=== PATIENT | female | born 2005 | race Caucasian/White ===

== ENCOUNTER 2024-04-07 16:40 | Emergency (ER) | payer SELFPAY ==
[2024-04-07 16:45] VITALS: BP 128/78; PULSE 90; TEMP 36.4; O2SAT 98; BMI 23.4
[2024-04-07 17:12] LABS: HCG Qualitative Urine* NEGATIVE (NEGATIVE); Internal Control Within Normal Limits
[2024-04-07 17:22] LABS: Influenza Virus A Antigen Negative; Influenza Virus B Antigen Negative; Internal Control Within Normal Limits; Respiratory Syncytial Virus Not Detected (NOT DETECTE); SARS-CoV-2 Ag NEGATIVE (NEGATIVE); Strep A Antigen Screen Negative
[2024-04-07 17:30] VITALS: O2SAT 97
--- NOTE | 2024-04-07 17:55 | XR_ITS ---
[facility] [place] [id number] Patient Name: JOSÉ MIGUEL MCCARTNEY MRN: [id number] date: 2005 Sex: F Assigned Patient Location: ER Current Patient Location: ER Accession/Order Number: [id number] Exam Date: 04/07/2024 18:25 Report Date: 04/07/2024 18:26 At the request of: KAROL GOMEZ Procedure: XR chest 2V XR chest 2V 04/07/2024 6:11 PM SIGNS AND SYMPTOMS: ^cough, shortness of breath PROTOCOL: Frontal and lateral radiographs of the chest COMPARISON: None FINDINGS: The trachea is midline. The heart and mediastinal structures are within normal limits. The lung parenchyma is clear. The bony thorax is intact. XR/XR chest 2V IMPRESSION: No acute cardiopulmonary pathology. Impression dictated by: Som Kwong M.D.04/07/2024 6:26 PM Dictation Location: [place] [address] Electronically authenticated by: [id number] Y Date: 04/07/2024 18:26
--- NOTE | 2024-04-07 18:04 | PC.NURSE ---
pt ambulatory to Radiology at this time with [employer] Manager for CXR.
[2024-04-07 18:15] VITALS: PULSE 70; O2SAT 96
[2024-04-07] MEDS: IPRATROPIUM/ALBUTEROL SULFATE 3 ML AMPUL.NEB IH (18:15)
[2024-04-07] MEDS: IBUPROFEN 400 MG TABLET PO (18:19)
[2024-04-07] MEDS: PSEUDOEPHEDRINE HCL 30 MG TABLET 60 MG PO (18:19)
[2024-04-07] MEDS: OXYMETAZOLINE HCL 0.05% NASAL SPRAY 2 SPRAY NS (18:19)
[2024-04-07] MEDS: PREDNISONE 20 MG TABLET 40 MG PO (18:19)
--- NOTE | 2024-04-07 18:53 | ED.URI1 ---
HPI - URI/Sore Throat General Chief Complaint: Upper Respiratory Infection Stated Complaint: CONGESTION, SORE THROAT Time Seen by Provider: 04/07/24 16:57 Source: patient and family (mother) History of Present Illness HPI Narrative: 19-year-old female presents to the emergency department with mother with complaint of not feeling well over the past 2 days. Complains of persistent runny nose, postnasal drainage that is keeping her awake at night. Patient has had associated cough with dark sputum. Feeling a little short of breath as well. + Sore throat. Denies any sinus pain, known fevers, chills Quality:?As above Severity:?Moderate Timing:?As above, constant Context: Normal setting and activity? Modifying factors:?None Associated symptoms: As above Related Data Previous Rx's ?Medication ?Instructions ?Recorded albuterol sulfate 1.25 mg/3 mL 1.25 mg (3 mL) inhalation Q6H PRN 04/07/24 solution for nebulization shortness of breath or wheezing #75 mL albuterol sulfate 90 mcg/actuation 2 inh inhalation Q6H PRN shortness 04/07/24 aerosol inhaler of breath or wheezing #8.5 grams doxycycline hyclate 100 mg capsule 100 mg PO BID 10 days #20 caps 04/07/24 loratadine 5 mg-pseudoephedrine ER 1 tab PO BID PRN cold symptoms #14 04/07/24 120 mg tablet,extended tabs release,12hr (Claritin-D 12 Hour) prednisone 20 mg tablet 20 mg PO DAILY #7 tabs 04/07/24 Allergies Allergy/AdvReac Type Severity Reaction Status Date / Time No Known Drug Allergies Allergy Verified 04/07/24 16:45 Review of Systems ROS Narrative Constitutional: Denies fever, chills, fatigue HENT: + Congestion, rhinorrhea, postnasal drip, sore throat. Denies ear pain diff swallowing, voice change Eyes: Denies discharge, eye redness Respiratory: + cough, shortness of breath Cardiovascular: Denies chest pain, palpitations PFSH PFSH Social History Little interest or pleasure in doing things: not at all Feeling down, depressed, or hopeless: not at all Exam Narrative Exam Narrative: Vital signs noted Nurses notes reviewed CONST:? Nontoxic, well appearing, well nourished, in no distress.? HENT: normocephalic, atraumatic.? Normal hearing.? Normal appearing ext ears, canals.? Both TMs are somewhat bulging, though clear, consistent with serous otitis media. She sounds congested. No nasal discharge.? Moist mucous membranes, no increased posterior oropharyngeal edema, exudate.? + streaking to the posterior oropharyngeal region consistent with postnasal drip. No trismus, maintaining own secretions. EYES: No injection, discharge NECK: supple, no lymphadenopathy CV: normal rate, regular rhythm, no murmur RESP: normal effort, speaking in complete sentences. Lung sounds clear and equal bilat.? No rales, rhonchi. + exp wheezing throughout NEURO: A&Ox3, steady gait, normal station SKIN: intact, warm, dry, no pallor PSYCHIATRIC: normal mood, affect Constitutional Vital Signs, click to edit/add: Last Vital Signs Temp 97.5 F L 04/07/24 16:45 Pulse 70 04/07/24 18:15 Resp 18 04/07/24 18:15 BP 128/78 04/07/24 16:45 Pulse Ox 96 04/07/24 18:15 O2 Del Method Room Air 04/07/24 18:15 Course Reevaluation(s) Reevaluation #1: On reevaluation, patient reports feeling much better. She is smiling, appears comfortable. On auscultation, wheezing improved. Discussed with patient and mother results, plan, and disposition. They are agreeable with plan Time: 18:58 Vital Signs Vital signs: Vital Signs Temperature 97.5 F L 04/07/24 16:45 Pulse Rate 90 04/07/24 16:45 Respiratory Rate 20 04/07/24 16:45 Blood Pressure 128/78 04/07/24 16:45 Pulse Oximetry 98 04/07/24 16:45 Oxygen Delivery Method Room Air 04/07/24 16:45 Temperature 97.5 F L 04/07/24 16:45 Pulse Rate 70 04/07/24 18:15 Respiratory Rate 18 04/07/24 18:15 Blood Pressure 128/78 04/07/24 16:45 Pulse Oximetry 96 04/07/24 18:15 Oxygen Delivery Method Room Air 04/07/24 18:15 MDM - URI/Sore Throat MDM Narrative Medical decision making narrative: This is a pleasant 19-year-old female who presents to the emergency department for evaluation of nasal congestion, cough On arrival, afebrile, vital signs are stable Exam, nontoxic, well-appearing patient in no distress. She sounds congested. Some streaking of the posterior oropharynx consistent with postnasal drip present. She has some bulging of both TMs, but clear, consistent with serous otitis. Heart regular rate and rhythm. Wheezing in all lung larios on expiration present. COVID, influenza, RSV screens were all negative. Strep screen was negative Chest x-ray reveals no acute or concerning findings. Patient was given duo nebulizer, prednisone, Afrin, Motrin with overall improvement of her symptoms. Favor upper respiratory infection, bronchitis Pneumonia less likely based on imaging COVID, influenza, RSV less likely based on testing. History and Record Review Discussion with independent historian: Mother Management Independent interpretation: Chest x-ray: No infiltrate, edema, or other acute abnormality noted Re-Evaluation See ED course Disposition ? The patient was discharged. Prescriptions sent to pharmacy: Doxycycline, prednisone, albuterol, Claritin-D. She was sent home with Afrin. Plan: Patient will be discharged to home.? Condition at time of disposition: stable, improved.? Advised to follow up with primary provider. Advised to return for any worsening and/or development of new, concerning signs or symptoms PLEASE NOTE: Portions of the medical record may have been produced using electronic sas developer and may contain errors with respect to translation of words which may not have been identified prior to finalization of the chart. Medical Records Attestation: I reviewed the patient's medical records. Lab Data Attestation: I reviewed the patient's lab results. Labs: Lab Results 04/07/24 Range/Units 17:00 Urine HCG, Qual Negative (NEGATIVE) Influenza Type A Ag Negative Influenza Type B Ag Negative RSV Antigen Not detected (NOT DETECTE) SARS-CoV-2 Ag (CV2AG) Negative (NEGATIVE) Streptococcus Screen Negative Imaging Data Chest x-ray: Radiologist's impression: ITS Impressions Chest X-Ray 04/07/24 17:55 IMPRESSION: No acute cardiopulmonary pathology. Impression dictated by: Som Kwong M.D.04/07/2024 6:26 PM Dictation Location[id number] Electronically authenticated by: [id number] Y Date: 04/07/2024 18:26 Discharge Plan Discharge Stand Alone Forms: Work/School Release Chief Complaint: Upper Respiratory Infection Clinical Impression: Bronchitis Upper respiratory infection Qualifiers: URI type: unspecified URI Qualified Code(s): J06.9 - Acute upper respiratory infection, unspecified Sinusitis Qualifiers: Sinusitis location: pansinusitis Chronicity: acute Recurrence: non-recurrent Qualified Code(s): J01.40 - Acute pansinusitis, unspecified Patient Disposition: Home, Self-Care Time of Disposition Decision: 18:59 Condition: Good Mode of Transportation: Private Vehicle Prescriptions / Home Meds: New doxycycline hyclate 100 mg capsule 100 mg PO BID 10 Days Qty: 20 0RF albuterol sulfate 1.25 mg/3 mL solution for nebulization 1.25 mg inhalation Q6H PRN (Reason: shortness of breath or wheezing) Qty: 75 0RF albuterol sulfate 90 mcg/actuation HFA aerosol inhaler 2 inh inhalation Q6H PRN (Reason: shortness of breath or wheezing) Qty: 8.5 0RF Claritin-D 12 Hour 5-120 mg tablet extended release 12 hr 1 tab PO BID PRN (Reason: cold symptoms) Qty: 14 0RF prednisone 20 mg tablet 20 mg PO DAILY Qty: 7 0RF Print Language: Latvian Instructions: Sinusitis (ED), Upper Respiratory Infection (ED), Acute Bronchitis (ED) Referrals: Conor Daniel MD [Physician] - 1 week
[2024-04-07 19:26] VITALS: BP 98/55; PULSE 77; TEMP 36.8; O2SAT 100
--- NOTE | 2024-04-07 19:29 | PC.NURSE ---
i gave this patient verbal and written discharge orders along with 4 e-scripts and this patient voices yes to understanding these. at time of discharge this patient voices no concerns and shows no signs of distress
== END 2024-04-07 19:31 | disposition home or self-care (01) ==
PROVIDERS: Physician Assistant; Emergency Provider Emergency Medicine
DX: J06.9 Acute upper respiratory infection, unspecified (principal); J40 Bronchitis, not specified as acute or chronic; J01.40 Acute pansinusitis, unspecified
CPT/HCPCS: 71046; 84703; 87070; 87420; 87804; 87811; 87880; 94640; 99285; J7512

== ENCOUNTER 2024-05-09 19:03 | Emergency (ER) | payer SELFPAY ==
[2024-05-09 19:11] VITALS: BP 123/63; PULSE 87; TEMP 36.9; O2SAT 100; BMI 23.1
--- OUTSIDE RECORDS SUMMARY | 2024-05-09 19:16 | XMS_ITS | CCD ---
Author Organization [facility] Care Team Providers Care Associate Chemist Name Role Phone DO Trae Echols Primary Care Provider DO Valeriano Rasheed Emergency Provider Trae ECHOLS Attending Unavail able Trae ECHOLS Attending Unavail able Trae ECHOLS Attending Unavail able Tammy RODRIGUEZ Attending Unavailable Trae Echols Primary Care Unavailable Radha Lyman Attending Unavailable Radha Lyman Admitting Unavailable Travis Soler Unavailable Medications Current Medications Medication Drug Class(es) Dates Sig (Normalized) Sig (Original) dicyclomine hydrochloride 10 mg oral capsule (3 sources) Anticholinergic Start: 10-11-2019 End: 11-16-2020 take 10 mg by mouth three times daily Dicyclomine Active 10 MG PO Three times daily November 16, 2020 12:15am Dicyclomine HCl 20 MG as directed prn stomach pain and diarrhea Active escitalopram 5 mg oral tablet (2 sources) Serotonin Reuptake Inhibitor Start: 10-01-2021 take 2.5 mg by mouth once daily Escitalopram Oxalate Active 2.5 MG PO Daily October 01, 2021 12:00am take 1 tablet by gisele th every twenty-four hours Lexapro 5 MG 1 tablet Orally Once a day for 30 days Active Completed/Discontinued Medications Medication Drug Class(es) Dates Sig (Normalized) Sig (Original) ondansetron 4 mg oral tablet (1 source) Serotonin-3 Receptor Antagonist Start: 10-11-2019 End: 10-01-2021 Ondansetron Hcl (Zofran) 4 mg tablet Discontinued 4 MG PO every 6 to 8 hours October 11, 2019 12:00am October 01, 2021 3:20pm pantoprazole 40 mg delayed release oral tablet (2 sources) Proton Pump Inhibitor Start: 10-11-2019 End: 10-01-2021 take 1 tablet by mouth once daily Pantoprazole (Protonix) 40 mg tablet,delayed release (DR/EC) Discontinued 40 MG PO Daily November 16, 2020 12:15am October 01, 2021 3:20pm promethazine hydrochloride 25 mg rectal suppository (3 sources) Phenothiazine Start: 11-16-2020 End: 10-01-2021 Promethazine Discontinued 25 MG CO Q6H November 16, 2020 12:00am October 01, 2021 3:20pm Start: 06-14-2020 End: 10-01-2021 take 25 mg by mouth every six hours Promethazine Discontinued 25 MG PO Q6H November 16, 2020 12:00am October 01, 2021 3:20pm sucralfate 1000 mg oral tablet (1 source) Aluminum Complex Start: 10-11-2019 End: 10-01-2021 take 1 tablet by mouth every six hours Sucralfate (Carafate) 1 gram tablet Discontinued 1 GM PO Q6H 56 October 11, 2019 12:00am October 01, 2021 3:20pm Problems Problem Classification Problem Date Documented Da te Episodic/Chronic Abdominal pain (2 sources) Abdominal pain; Translations: [Unspecified abdominal pain] 10-10-2019 Episodic Mood disorders (2 sources) Recurrent major depressive episodes, moderate ; Translations: [Major depressive disorder, recurrent, moderate] Chronic Nausea and vomiting (2 sources) Nausea and vomiting; Translations: [Nausea with vomiting, unspecified] 11-16-2020 Episodic Substance-related disorders (1 source) Cannabis abuse; Translations: [Cannabis abuse, uncomplicated] 06-14-2020 Chronic Unclassified (1 source) Cough, unspecified; Translations: [Cough, unspecified] Onset: 02-16-2023 Results Test Name Value Interpretation Reference Range Facility COVID-19 / Flu A/B / RSV PCR on 02-16-2023 SARS-CoV-2 (COVID-19) RNA GIACOMO+probe Ql (Unsp spec) COVID-19 Cepheid Result Negative for SARS-CoV-2 RNA by RT-PCR Flu A Cepheid Result Negative for Flu A RNA by RT-PCR Flu B Cepheid Result Negative for Flu B RNA by RT-PCR RSV Cepheid Result Negative for RSV RNA by RT-PCR COVID19 Blank Space Reference: Negative COVID19 Blank Space Cepheid Disclaimer The Cepheid Xpert Xpress CoV-2/Flu/RSV Plus has Cepheid Disclaimer not been FDA cleared or approved; this test has Cepheid Disclaimer been authorized by FDA under an EUA for use by Cepheid Disclaimer authorized laboratories; this test has been Cepheid Disclaimer authorized only for the simultaneous qualitative Cepheid Disclaimer detection and differentiation of nucleic acids from Cepheid Disclaimer SARS-CoV-2, influenza A, influenza B, and Cepheid Disclaimer respiratory syncytial virus (RSV), and not for any Cepheid Disclaimer other viruses or pathogens; and this test is only Cepheid Disclaimer authorized for the duration of the declaration that Cepheid Disclaimer circumstances exist justifying the authorization of Cepheid Disclaimer emergency use of in vitro diagnostic tests for Cepheid Disclaimer detection and/or diagnosis of COVID-19 under Cepheid Disclaimer Section 564(b)(1) of the Act, 21 U.S.C. 360bbb- Cepheid Disclaimer 3(b)(1), unless the authorization is terminated or Cepheid Disclaimer revoked sooner. PERFORMED BY: [facility] [address] [facility] [place] [address] PATHOLOGIST SENIOR [employer] SYSTEMS PROGRAMMER TEAGAN FRYE M.D. [facility] Comment on above: Performed By: #### CEPHEID NEG, COVID19 FLU RSV #### [facility] [address] [place] [address] [facility] Cepheid COVID PCR Negativeon 01-08-2024 SARS-CoV-2 (COVID-19) RNA GIACOMO+probe Ql (Unsp spec) Negative Normal Negative [facility] Comment on above: Result Comment: This is a duplicate Critical access hospital Xpert Xpress CoV-2/Flu/RSV Plus RNA by RT-PCR result to be used for statistical tracking purpose only. PERFORMED BY: [place] [address] PATHOLOGIST SENIOR [employer] SYSTEMS PROGRAMMER TEAGAN FRYE M.D. Performed By: #### C EPHEID NEG, COVID19 FLU RSV #### [address] XR chest 2V*on 02-16-2023 XR chest 2V* [facility] Main [place] [address] [place] [address] XRay Report Signed Patient: José Miguel Mccartney MR#: [id number] 8 : 2005 Acct:[id number] Age/Sex: 17 / F ADM Date: 02/16/23 Loc: ER Room: Type: [facility] ER Attending Dr: Copies to: Radha Lyman APRN Ordering Provider: Radha Lyman APRN Date of Service: 02/16/23 XR/XR chest 2V*: Upper Respiratory Infection PA AND LATERAL CHEST: CLINICAL HISTORY: Shortness of breath, cough and nasal congestion. COMPARISON: None There is no focal parenchymal consolidation, effusion or pneumothorax. The cardiac, hilar and mediastinal silhouettes are within normal limits. There is no vascular congestion. The visualized bony thorax is intact. XR/XR chest 2V* IMPRESSION: NO ACUTE CARDIOPULMONARY ABNORMALITY. Impression dictated by: Wanda Crain M.D.02/16/2023 10:41 AM Dictation Location: [place] [address] Transcribed By: [facility] 02/16/23 1041 Dictated By: Wanda Crain MD 02/16/23 1041 Signed By: 02/16/23 1041 [facility] Physician Referralon 09-25-2 022 Physician Referral [id number] [facility] Family Medicine Office/Clini c Noteon 09-24-2021 Family Medicine Office/Clinic Note HPI Staff José Miguel is a 16 year old female who presents with C/O anxiety & depression. This has been a concern for several years, but has previously refused counselling/therapy or medications in regards to this concern. C/O moods swings, irritability, worrying, & panic attacks. Denies chest pains or palpitations, loss of appetite, fatigue, or trouble sleeping. Admits to suicidal thoughts in the past, but not recently. KIANNA score: 18 PHQ9 score: 7 Hx gastritis. Also requesting refills of dicyclomine. Reports that she is no longer following with GI on a regular/routine basis and was advised to contact PCP for refills. History of Present Illness I have reviewed and verified the staff HPI to be accurate for this encounter. Her father feels she needs treatment. Oppositional and angry. Confrontational. Worse around her period. She has been adamant about not taking anything. She is not sure what to do to deal. Belly is a chronic issue. Dicyclomine works well. Review of Systems PHQ Score Initial Depression Screen Score: 0 Constitutional: no fever, no chills, no sweats, no weakness Respiratory: no shortness of breath, no cough, no orthopnea, no wheezing Cardiovascular: no chest pain, no palpitations, no edema Additional ROS info: Except as noted in the above Review of Systems and in the History of Present Illness all other systems have been reviewed and are negative or noncontributory. Physical Exam Vitals & Measurements T: 36.5 ?C(Temporal Artery) HR: 72(Peripheral) BP: 100/68 SpO2: 99% HT: 153.0 cm HT: 153 cm WT: 59.5 kg WT: 59.5 kg BMI: 25.42 General: alert, no acute distress Skin: warm, dry Head: no trauma, normocephalic Neck: Trachea midline, no adenopathy, no tenderness Eye: normal conjunctiva, sclera clear ENMT: TM's clear, oral mucosa moist, no pharyngeal erythema or exudate Cardiovascular: regular rate and rhythm, normal peripheral perfusion Respiratory: Lungs CTA, respirations non labored Chest wall: no deformity. Gastrointestinal: soft, non distended, no tenderness, no guarding. Back: No tenderness, Normal ROM, Normal alignment. Extremities: no deformity, no trauma Neurological: oriented x 4, LOC appropriate for age, CN II-XII intact, motor strength equal & normal bilaterally, sensation equal & normal bilaterally, speech normal Psychiatric: cooperative, affect appropriate for age, normal judgement, normal psychiatric thoughts. Assessment/Plan 1. Generalized anxiety disorder (F41.1: Generalized anxiety disorder) start Lexapro 2.5, send to counselling at [facility] 2. Generalized abdominal pain (R10.84: Generalized abdominal pain) she can continue the dicyclomine Orders: dicyclomine, 20 mg = 1 tab(s), Oral, QID, take 1 tablet by mouth four times a day for 10 days, # 60 tab(s), Refills(s) 2, Pharmacy: [facility] #[id number], 153, cm, 09/24/21 15:06:00 EDT, Height/Length Dosing, 59.5, kg, 09/24/21 15:06:00 EDT, Weight Dosing escitalopram, 0.5 tab, Oral, Daily, # 30 tab(s), Refills(s) 1, Pharmacy: [facility] #[id number], 153, cm, 09/24/21 15:06:00 EDT, Height/Length Dosing, 59.5, kg, 09/24/21 15:06:00 EDT, Weight Dosing Follow-up With When Contact Information Trae ECHOLS DO, FAM In 1 month [address] [place], [place] [id number]- Additional Instructions: Problem List/Past Medical History Ongoing Acid reflux Dysmenorrhea Generalized abdominal pain Generalized anxiety disorder Historical No qualifying data Procedure/Surgical History Colonoscopy (2020), EGD - Esophagogastroduodenoscopy (2020). Medications dicyclomine 20 mg Tab, 20 mg= 1 tab(s), Oral, QID, 2 refills Fiber Tabs, Oral, QID Lexapro 5 mg oral tablet, 0.5 tab, Oral, Daily, 1 refills Allergies No Known Allergies Social History Alcohol - Denies Alcohol Use, 11/02/2019 Household alcohol concerns: No., 11/02/2019 Substance Abuse - Denies Substance Abuse, 11/02/2019 Tobacco - Denies Tobacco Use, 11/02/2019 Never (less than 100 in lifetime) Tobacco Use:. Never Smokeless Tobacco Use:. Household tobacco concerns: No., 12/05/2020 Family History Hypertension: Father. Normal [facility] Comment on above: Result Comment: Electronically Signed By : Trae ECHOLS DO\Date and Time Signed: 09/24/21 20:56 EDT Vital Signs Date Time Vital Sign Value Performing Clinician Facility 03-04-2023 15:00-0500 Body height 152.4 cm Travis Soler Other [facility] Other 03-04-2023 15:00-0500 Body mass index (BMI) [Ratio] 22.26 kg/m2 Travis Soler Other [facility] Other 03-04-2023 15:00-0500 Body temperature 98.2 [degF] Travis Soler Other [facility] Other 03-04-2023 15:00-0500 Body weight 51.71 kg Travis Soler Other [facility] Other 03-04-2023 15:00-0500 Diastolic blood pressure 64 mm[Hg] Travis Soler Other [facility] Other 03-04-2023 15:00-0500 Respiratory rate 16 /min Travis Soler Other [facility] Other 03-04-2023 15:00-0500 SaO2% (BldA) [Mass fraction] 98 % Travis Soler Other [facility] Other 03-04-2023 15:00-0500 Systolic blood pressure 92 mm[Hg] Travis Soler Other [facility] Other 10-01-2021 15:15-0400 Body temperature 97.8 [degF] DO Trae Echols Work Phone: [facility] 10-01-2021 15:15-0400 Diastolic blood pressure 67 mm[Hg] DO Trae Echols Work Phone: [facility] 10-01-2021 15:15-0400 Heart rate 75 /min DO Trae Echols Work Phone: [facility] 10-01-2021 15:15-0400 Respiratory rate 16 /min DO Trae Echols Work Phone: [facility] 10-01-2021 15:15-0400 SaO2% (BldA) [Mass fraction] 100 % DO Trae Echols Work Phone: [facility] 10-01-2021 15:15-0400 Systolic blood pressure 120 mm[Hg] DO Trae Echols Work Phone: [facility] Encounters Encounter Date Encounter Type Care Provider Facility Start: 03-04-2023 End: 03-04-2023 ambulatory Travis Soler Other [facility] Other Start: 03-04-2023 Office outpatient ne w 30 minutes Travis Soler [facility] [place] Start: 02-16-2023 End: 02-16-2023 Emergency department patient visit Trae Echols Facility:[facility] Start: 02-05-2022 ambulatory Trae ECHOLS Facility:[facility] Start: 11-14-2021 ambulatory Trae ECHOLS Facility:[facility] Start: 10-01-2021 End: 10-01-2021 Emergency department patient visit DO Trae Echols Work Phone: [facility] Start: 09-24-2021 End: 09-25-2021 ambulatory Trae ECHOLS Facility:[facility] Start: 09-02-2021 ambulatory Trae Arnold Facility:[facility] Start: 02-28-2021 End: 03-01-2021 ambulatory Tammy RODRIGUEZ Facility:[facility] Plan of Treatment Date Care Activity Detail Author Patient referral [facility] Work Phone: Payers Date Payer Category Payer Self-pay [id number] 2020 Unknown [id number] ed [id number] 1982 Unknown [id number] 2.16.8 [id number] 1982 Unknown [id number] 2.16.8 [id number] 1982 Unknown [id number] 2.16.8 [id number] 1982 Unknown [id number] 2.16.8 [id number] 1982 Unknown [id number] 2.16.8 [id number] Unknown [id number] 2.16.8 [id number] Social History Date Type Detail Facility Start: 10-01-2021 Tobacco smoking status NHIS Never smoked tobacco (finding) [facility] Start: 2005 Sex Assigned At Female F [facility] Sex Assigned At Sex Assigned At Bir th [facility] Other Evaluation note 03-04-2023 Note Date & Type Note Facility 03-04-2023 Evaluation note Encounter Date Diagnosis Assessment Notes Feb, Moderate episode of recurrent major depressive disorder (ICD-10 - F33.1) She was doing great on 5 mg daily so we will resume the medication. If she happens to have any side effects or if the medicine is less effective she will let me know. I did advise her that we could increase to 10 mg/day if necessary. Again, she is not interested in counseling at this time [facility] Other Evaluation note Note Date & Type Note Facility Evaluation note No assessment information availa ble [facility] Work Phone: History general Narrative - Reported Note Date & Type Note Facility History general Narrative - Reported Type Medical History depression Surgical History EGD and colonoscopy , GI in [place] 2021 [facility] Other Chief Complaint and Reason for Visit Chief Complaint abd pain Advance Directives Advance Directive Response Recorded Date/ Time Advance Directives No October 10, 2019 11:26pm Summary Purpose Family History No Family History Records FoundNo Family History Records Found Additional Source Comments Care Teams (unrecognized sec tion and content) Team Status: Inactive Member Role Status Dates Trae Echols , DO Primary Care Provider Active Valeriano Rasheed , DO Emergency Provider Active Team Status: Active Member Role Status Dates Trae Echols , Primary Care Provider Active Goals (unrecognized section and content) Goals may be documented in a n alternate sectionNo Information INFORMATION SOURCE (unrecogn ized section and content) DATE CREATED AUTHOR 02/03/2022 [facility] DATE CREATED AUTHOR AUTHOR'S ORGANIZ ATION 02/28/[address] [facility] REASON FOR VISIT (unrecogniz ed section and content) est care, Pt says she was se dayanna Mckeon but he left the area. Pt says he gave her Lexapro 5 mg but he left before she could refill it, so she has been out of it for 2 months. Pt says medication did help she did see a good difference w/ it. Pt says since she has been out of it her depression has returned FOR RECORDS PERTAINING TO PATIENTS WHO ARE OR HAVE BEEN ENROLLED IN A CHEMICAL DEPENDENCY/SUBSTANCEABUSE PROGRAM, SOME INFORMATION MAY BE OMITTED. This clinical summary was aggregated from multiple sources. Caution should be exercised in using it in the provision of clinical care. This summary normalizes information from multiple sources, and as a consequence, information in this document may materially change the coding, format and clinical context of patient data. In addition, data may be omitted in some cases. CLINICAL DECISIONS SHOULD BE BASED ON THE PRIMARY CLINICAL RECORDS. [employer] provides no warranty or guarantee of the accuracy or completeness of information in this document.
--- NOTE | 2024-05-09 19:24 | ED_ITS ---
HPI - URI/Sore Throat General Chief Complaint: Upper Respiratory Infection Stated Complaint: SORE THROAT Time Seen by Provider: 05/09/24 19:18 Source: patient Limitations: no limitations History of Present Illness HPI Narrative: This 19-year-old female with no significant medical history presents for evaluation of tonsillar swelling with exudate on her tonsils. The patient states she felt her neck today and felt some lymph nodes in her neck and looked in the mirror and saw that her tonsils were swollen with a white exudate. She otherwise has no symptoms. She has no pain with swallowing. No fever. No neck pain, no headache, no fatigue. She denies any nausea vomiting or diarrhea. She denies the possibility of . Related Data Previous Rx's ?Medication ?Instructions ?Recorded albuterol sulfate 1.25 mg/3 mL 1.25 mg (3 mL) inhalation Q6H PRN 04/07/24 solution for nebulization shortness of breath or wheezing #75 mL albuterol sulfate 90 mcg/actuation 2 inh inhalation Q6H PRN shortness 04/07/24 aerosol inhaler of breath or wheezing #8.5 grams doxycycline hyclate 100 mg capsule 100 mg PO BID 10 days #20 caps 04/07/24 loratadine 5 mg-pseudoephedrine ER 1 tab PO BID PRN cold symptoms #14 04/07/24 120 mg tablet,extended tabs release,12hr (Claritin-D 12 Hour) prednisone 20 mg tablet 20 mg PO DAILY #7 tabs 04/07/24 Allergies Allergy/AdvReac Type Severity Reaction Status Date / Time No Known Drug Allergies Allergy Verified 05/09/24 19:11 Review of Systems ROS Status of ROS 10 or more systems reviewed and unremark able except as noted in history and below [facility] Social History Little interest or pleasure in doing things: not at all Feeling down, depressed, or hopeless: not at all Exam Narrative Exam Narrative: Vital signs and Nursing Notes reviewed: Patient is afebrile with a normal pulse, normal blood pressure, she is not hypoxic with pulse ox of 100% on room air General: Awake, alert, oriented, no acute distress, lying comfortably on the stretcher HEENT: Normocephalic atraumatic, mucous membranes are moist and pink, eyes are clear, normal conjunctiva, vision is grossly intact, there is 3+ tonsillar hypertrophy with a white exudate overlying the tonsils, no swelling of the tongue, uvula or pharyngeal soft tissues, no pooling of secretions Neck; bilateral anterior cervical lymphadenopathy, no stridor or nuchal rigidity noted Chest: Lungs are clear to auscultation with good air entry, there is no wheezing rhonchi or rales appreciated no accessory muscle use, patient is speaking in complete sentences-no chest wall tenderness to palpation CVS: Regular rate and rhythm S1-S2, no murmurs rubs or gallops, pulses are brisk and equal bilaterally Skin: Normal in appearance without rash,pallor, petechiae or purpura Neuro: No focal deficits Constitutional Vital Signs, click to edit/add: Last Vital Signs Temp 98.5 F 05/09/24 19:11 Pulse 87 05/09/24 19:11 Resp 19 05/09/24 19:11 BP 123/63 05/09/24 19:11 Pulse Ox 100 05/09/24 19:11 O2 Del Method Room Air 05/09/24 19:11 Course Vital Signs Vital signs: Vital Signs Temperature 98.5 F 05/09/24 19:11 Pulse Rate 87 05/09/24 19:11 Respiratory Rate 05/09/24 19:11 Blood Pressure 123/63 05/09/24 19:11 Pulse Oximetry 100 05/09/24 19:11 Oxygen Delivery Method Room Air 05/09/24 19:11 Temperature 98.5 F 05/09/24 19:11 Pulse Rate 87 05/09/24 19:11 Respiratory Rate 19 05/09/24 19:11 Blood Pressure 123/63 05/09/24 19:11 Pulse Oximetry 100 05/09/24 19:11 Oxygen Delivery Method Room Air 05/09/24 19:11 MDM - URI/Sore Throat MDM Narrative Medical decision making narrative: This 19-year-old female who is otherwise healthy presents for evaluation of tonsillar swelling with exudate and anterior cervical lymphadenopathy. The patient states she felt her neck earlier today and felt the lymph nodes in her neck and looked at her throat and noticed that her tonsils were swollen. She has 3+ tonsillar hypertrophy with exudate on her tonsils. Her voice is clear, she also has mild anterior cervical lymphadenopathy. She does not have any headache neck pain or stiffness. She has not any skin rash. She is not having any fevers, chills, cough, headache or other upper respiratory symptoms. Strep and mono was ordered. Both are negative. She will be treated with amoxicillin for tonsillitis. First dose of amoxicillin will be given to the patient emergency department and she will be prescribed a 10-day course of amoxicillin. I encouraged her to drink plenty of fluids and use Tylenol and Motrin as needed for fever or pain. Lab Data Labs: Lab Results 05/09/24 05/09/24 Range/Units 19:50 19:52 Monoscreen Negative (NEGATIVE) Streptococcus Screen Negative Discharge Plan Discharge Chief Complaint: Upper Respiratory Infection Clinical Impression: Acute tonsillitis Patient Disposition: Home, Self-Care Time of Disposition Decision: 20:36 Condition: Good Prescriptions / Home Meds: No Action doxycycline hyclate 100 mg capsule 100 mg PO BID 10 Days Qty: 20 0RF albuterol sulfate 1.25 mg/3 mL solution for nebulization 1.25 mg inhalation Q6H PRN (Reason: shortness of breath or wheezing) Qty: 75 0RF albuterol sulfate 90 mcg/actuation HFA aerosol inhaler 2 inh inhalation Q6H PRN (Reason: shortness of breath or wheezing) Qty: 8.5 0RF Claritin-D 12 Hour 5-120 mg tablet extended release 12 hr 1 tab PO BID PRN (Reason: cold symptoms) Qty: 14 0RF prednisone 20 mg tablet 20 mg PO DAILY Qty: 7 0RF Print Language: Libyan Instructions: Tonsillitis (ED) Referrals: Physician,Non-Staff, MD [Primary Care Provider] - 1 week Discharge Date/Time: 05/09/24 21:04
[2024-05-09 20:22] LABS: Internal Control Within Normal Limits; Strep A Antigen Screen Negative
[2024-05-09 20:30] LABS: Internal Control Within Normal Limits; Mono Screen NEGATIVE (NEGATIVE)
[2024-05-09] MEDS: AMOXICILLIN 500 MG CAPSULE PO (20:51)
== END 2024-05-09 21:04 | disposition home or self-care (01) ==
PROVIDERS: Emergency Provider Emergency Medicine
DX: J03.90 Acute tonsillitis, unspecified (principal)
CPT/HCPCS: 86308; 87070; 87880; 99285